=== PATIENT | female | born 1945 | race American Indian/Alaskan Native ===

== ENCOUNTER 2017-03-30 10:22 | Inpatient (IN) | payer MEDICARE, OTHER ==
[2017-03-30 11:04] LABS: Basophils % (Auto) 0.8 % (0.0-1.8); Eosinophils % (Auto) 1.7 % (0.0-4.3); Hematocrit 39.3 % (30.3-42.9); Hemoglobin 12.8 gm/dl (10.1-14.3); Mean Corpuscular HGB Conc 33 % (30-34); Mean Corpuscular Hemoglobin 27 pg (28-32); Mean Corpuscular Volume 84 fl (79-97); Platelet Count 241 K/mm3 (140-440); White Blood Count 4.3 K/mm3 (4.5-11.0)
[2017-03-30 11:23] LABS: Anion Gap 17 mmol/L; BUN/Creatinine Ratio 31; Blood Urea Nitrogen 25 mg/dL (7-17); Calcium 9.1 mg/dL (8.4-10.2); Carbon Dioxide 28 mmol/L (22-30); Chloride 101.2 mmol/L (98-107); Glucose 80 mg/dL (65-100); Potassium 3.6 mmol/L (3.6-5.0); Sodium 143 mmol/L (137-145)
--- NOTE | 2017-03-30 12:35 | Emergency Department Report ---
ED Chest Pain HPI - General Chief Complaint: Chest Pain Stated Complaint: CHEST PAIN Time Seen by Provider: 03/30/17 12:33 Source: patient, EMS Mode of arrival: Stretcher Limitations: No Limitations - History of Present Illness Initial Comments: This is a patient states she was woken up at 3 AM by a sharp chest pain of brief duration (seconds). She states that her jaw was uncomfortable for several minutes as well as her left shoulder. She states that she went to [facility] last week for evaluation of chest pain but was not admitted. She was referred to a tripe finisher who stated that she should have outpatient stress testing. The patient has never been admitted for a cardiac workup. She has seen Dr. Alonso in his office. She states that she was placed on a beta jeanine for which she seems to be describing as a tachycardia. I do not believe that she was found to be in SVT though. Dr. Elaine told her to decrease her beta jeanine dose and she stated that she was dizzy this weekend. Patient has noted that her heart rate is now slow. She states that she has had "variability" of her heart rate and blood pressure. She states that she had episodes of dizziness associated with a rapid heart rate. Today she states that she had another episode of dyspnea which was associated with rapid breathing. Complaint: chest pain -: Gradual Onset: during rest Pain Location: substernal Pain Radiation: other (aches had pain in her jaw and her left shoulder for a few minutes and) Severity scale (0 -10): 6 Quality: sharp Consistency: now resolved Improves With: nothing Worsens With: nothing re: dyspnea Treatments Prior to Arrival: other (see HPI prior ER visit beta jeanine outpatient visit to tripe finisher) Aspirin use within the Past 7 Days: (0) No - Related Data On Oral Contraceptives: No Home Medications Medication Instructions Recorded Confirmed Last Taken Losartan/Hydrochlorothiazide 1 each PO QDAY 03/30/17 03/30/17 Unknown [Losartan-Hctz 100-25 mg Tab] Metoprolol Tartrate 25 mg PO BID 03/30/17 03/30/17 Unknown Prednisone 10 mg PO QDAY 03/30/17 03/30/17 Unknown Allergies Allergy/AdvReac Type Severity Reaction Status Date / Time celecoxib [From Celebrex] Allergy Unknown Verified 03/30/17 10:41 hydrocodone Allergy Unknown Verified 03/30/17 10:41 tramadol Allergy Unknown Verified 03/30/17 10:41 Heart Score - HEART Score History: Slightly suspicious EKG: Non-specific Age: > 65 Risk factors: 1-2 risk factors Troponin: < normal limit HEART Score: 4 ED Review of Systems ROS: Stated complaint: CHEST PAIN Other details as noted in HPI Constitutional: denies: chills, fever Eyes: denies: eye pain, eye discharge, vision change ENT: denies: ear pain, throat pain Respiratory: denies: cough, shortness of breath, wheezing Cardiovascular: as per HPI, chest pain, other. denies: palpitations Endocrine: no symptoms reported Gastrointestinal: denies: abdominal pain, nausea, diarrhea Genitourinary: denies: urgency, dysuria, discharge Musculoskeletal: denies: back pain, joint swelling, arthralgia Skin: denies: rash, lesions Neurological: denies: headache, weakness, paresthesias Psychiatric: denies: anxiety, depression Hematological/Lymphatic: denies: easy bleeding, easy bruising ED Past Medical Hx - Past Medical History Hx Hypertension: Yes - Social History Substance Use Type: None - Medications Home Medications: Home Medications Medication Instructions Recorded Confirmed Last Taken Type Losartan/Hydrochlorothiazide 1 each PO QDAY 03/30/17 03/30/17 Unknown History [Losartan-Hctz 100-25 mg Tab] Metoprolol Tartrate 25 mg PO BID 03/30/17 03/30/17 Unknown History Prednisone 10 mg PO QDAY 03/30/17 03/30/17 Unknown History ED Physical Exam - General Limitations: No Limitations General appearance: alert, in no apparent distress - Head Head exam: Present: atraumatic, normocephalic - Eye Eye exam: Present: normal appearance. Absent: scleral icterus - ENT ENT exam: Present: mucous membranes moist - Neck Neck exam: Present: normal inspection - Respiratory Respiratory exam: Present: normal lung sounds bilaterally. Absent: respiratory distress - Cardiovascular Cardiovascular Exam: Present: normal rhythm, bradycardia. Absent: systolic murmur, diastolic murmur, rubs, gallop - GI/Abdominal GI/Abdominal exam: Present: soft, normal bowel sounds. Absent: distended, tenderness, guarding, rebound, rigid - Extremities Exam Extremities exam: Present: normal inspection - Back Exam Back exam: Present: normal inspection - Neurological Exam Neurological exam: Present: alert, oriented X3, CN II-XII intact. Absent: motor sensory deficit - Psychiatric Psychiatric exam: Present: normal affect, normal mood - Skin Skin exam: Present: warm, dry, intact, normal color. Absent: rash ED Course Vital Signs 03/30/17 03/30/17 03/30/17 11:43 11:45 11:54 Pulse Rate 44 L 44 L Respiratory 12 15 16 Rate Blood Pressure 148/61 Blood Pressure [Left] O2 Sat by Pulse 100 100 Oximetry 03/30/17 03/30/17 03/30/17 12:00 12:16 12:30 Pulse Rate 45 L 46 L 53 L Respiratory 18 16 19 Rate Blood Pressure 148/61 148/61 148/61 Blood Pressure 148/61 [Left] O2 Sat by Pulse 100 100 100 Oximetry - Reevaluation(s) Reevaluation #1: 03/30/17 13:52 Patient remained completely stable. He was a bit bradycardic but her repolarization segments look good. She was clinically asymptomatic. I spoke to the hospitalist Dr. Vo as well as Nasima the nurse practitioner for [facility]. GREG score - Greg Score Age > 65: (1) Yes Aspirin use within the Past 7 Days: (0) No 3 or more CAD Risk Factors: (0) No 2 or more Angina events in past 24 hrs: (0) No Known CAD with more than 50% Stenosis: (0) No Elevated Cardiac Markers: (0) No ST Deviation Greater than 0.5mm: (0) No GREG Score: 1 ED Medical Decision Making - Lab Data Result diagrams: 03/30/17 10:46 03/30/17 10:46 Laboratory Results - last 24 hr 03/30/17 03/30/17 10:46 10:46 WBC 4.3 L RBC 4.70 Hgb 12.8 Hct 39.3 MCV 84 MCH 27 L MCHC 33 RDW 15.0 Plt Count 241 Lymph % (Auto) 32.1 [place] % (Auto) 8.7 H Eos % (Auto) 1.7 Baso % (Auto) 0.8 Lymph # 1.4 [place] # 0.4 Eos # 0.1 Baso # 0.0 Seg Neutrophils % 56.7 Seg Neutrophils # 2.4 Sodium 143 Potassium 3.6 Chloride 101.2 Carbon Dioxide 28 Anion Gap 17 BUN 25 H Creatinine 0.8 Estimated GFR > 60 BUN/Creatinine Ratio 31 Glucose 80 Calcium 9.1 Troponin T < 0.010 - EKG Data -: EKG Interpreted by Me EKG shows normal: sinus rhythm, axis, intervals, QRS complexes, ST-T waves Rate: bradycardia - EKG Data Interpretation: no acute changes - Radiology Data Chest x-ray shows no acute process Critical care attestation.: If time is entered above; I have spent that time in minutes in the direct care of this critically ill patient, excluding procedure time. ED Disposition Clinical Impression: Bradycardia Chest pain Qualifiers: Chest pain type: unspecified Qualified Code(s): R07.9 - Chest pain, unspecified Disposition: DC-09 OP ADMIT IP TO THIS HOSP Is pt being admited?: Yes Does the pt Need Aspirin: Yes Condition: Stable Instructions: Chest Pain (ED) Referrals: EMBER FINNEY MD [Primary Care Provider] - 3-5 Days Time of Disposition: 13:54
[2017-03-30] MEDS ORDERED: BABY ASPIRIN PO ONE (13:00)
--- NOTE | 2017-03-30 13:20 | XRay Report ---
Single view chest: History: Hypertension. Findings: Borderline cardiomegaly. Trachea is midline. No consolidation, pneumothorax or pleural effusion. Impression: No cute cardiopulmonary findings.
--- NOTE | 2017-03-30 13:34 | Consultation ---
History of Present Illness Consult date: 03/30/17 Requesting physician: MARCOS WADE Consult reason: chest pain History of present illness: The pt is a 71 YO female with a past medical history significant for HTN, chronic back pain, lumbar stenosis, lumbar herniated disc, lumbar radiculopathy. She was seen in our office yesterday by Dr. Sun. She presented with c/o chest pain, palpitations and near syncope. She was seen recently at [facility] for history of palpitations and near syncope. She was observed in the ER and sent home. She has severe degenerative joint disease affecting the lumbar disk area and also knee regions. As per the patient she was placed on Cymbalta and subsequently on Celebrex for which she has had side effects, palpitations, feeling of passing out as presyncope. She also gives hx of chest heaviness on and off not radiating and not associated with any sweating. The chest heaviness is nonexertional, not typical of ischemia. She also gives hx of "heart flutter" and palpitations which leads to near syncopal episodes. As per her during those episodes her BP and heart rate both go up and subsequently symptoms subside. She was also diagnosed by reservations clerk as having polymyalgia rheumatica. Recently she was placed on beta jeanine (Metoprolol 25 mg PO bid).She admits that she takes 25 mg once a day as she felt the heart rate was too slow when she took it twice a day. She never loss consciousness during those episodes. She as advised yesterday per Dr. Sun to start taking Metoprolol 12.5 mg PO BID. Also changed the dose of Losartan HCTZ to 100/12.5 (she was taking 100/25) once a day. She was ordered TSH, 48 hr Holter monitor, echo, bilateral carotid doppler studies and exercise stress test for further cardiac evaluation as OP but awoke at 3AM today with more severe chest pain than usual and decided to seek medical attention. Past History Past Medical History: hypertension Past Surgical History: hysterectomy, Other (back surgery) Social history: denies: smoking, alcohol abuse, prescription drug abuse Medications and Allergies Allergies Allergy/AdvReac Type Severity Reaction Status Date / Time celecoxib [From Celebrex] Allergy Unknown Verified 03/30/17 10:41 hydrocodone Allergy Unknown Verified 03/30/17 10:41 tramadol Allergy Unknown Verified 03/30/17 10:41 Home Medications Medication Instructions Recorded Confirmed Last Taken Type Losartan/Hydrochlorothiazide 1 each PO QDAY 03/30/17 03/30/17 Unknown History [Losartan-Hctz 100-25 mg Tab] Metoprolol Tartrate 25 mg PO BID 03/30/17 03/30/17 Unknown History Prednisone 10 mg PO QDAY 03/30/17 03/30/17 Unknown History Review of Systems Constitutional: no weight loss, no weight gain, no fever, no chills, no sweats Ears, nose, mouth and throat: no ear pain, no nose pain, no sinus pressure, no sinus pain Cardiovascular: chest pain, palpitations, lightheadedness, high blood pressure, no orthopnea, no edema, no syncope, no shortness of breath, no dyspnea on exertion Respiratory: no cough, no shortness of breath, no dyspnea on exertion, no congestion, no wheezing, no pain on inspiration Gastrointestinal: no abdominal pain, no nausea, no vomiting, no diarrhea, no constipation, no change in bowel habits Genitourinary Female: no pelvic pain, no flank pain, no dysuria, no urinary frequency, no urgency Musculoskeletal: low back pain (chronic ), no neck stiffness, no neck pain, no shooting arm pain, no arm numbness/tingling Integumentary: no rash, no pruritis, no redness, no sores, no wounds Neurological: no head injury, no paralysis, no weakness, no parathesias, no numbness, no tingling, no seizures, no syncope Psychiatric: no sleep disturbances Endocrine: no cold intolerance, no heat intolerance Hematologic/Lymphatic: no easy bruising, no easy bleeding, no lymphadenopathy Allergic/Immunologic: no urticaria, no wheezing, no persistent infections Physical Examination Vital Signs Pulse Resp 44 L 12 03/30/17 11:43 03/30/17 11:43 General appearance: no acute distress HEENT: Positive: PERRL, Normocephaly, Mucus Membranes Moist Neck: Positive: neck supple, trachea midline Cardiac: Positive: Reg Rate and Rhythm, S1/S2, Systolic Murmur Lungs: Positive: clear to auscultation Neuro: Positive: Grossly Intact, Cranial Nerve 2-12 Intact Abdomen: Positive: Soft. Negative: Tender Skin: Positive: Clear. Negative: Rash Extremities: Present: normal, upper extr. pulses, lower extr. pulses. Absent: edema Results 03/30/17 10:46 03/30/17 10:46 CBC 03/30/17 Range/Units 10:46 WBC 4.3 L (4.5-11.0) K/mm3 RBC 4.70 (3.65-5.03) M/mm3 Hgb 12.8 (10.1-14.3) gm/dl Hct 39.3 (30.3-42.9) % Plt Count 241 (140-440) K/mm3 Lymph # 1.4 (1.2-5.4) K/mm3 [place] # 0.4 (0.0-0.8) K/mm3 Eos # 0.1 (0.0-0.4) K/mm3 Baso # 0.0 (0.0-0.1) K/mm3 Comprehensive Metabolic Panel 03/30/17 Range/Units 10:46 Sodium 143 (137-145) mmol/L Potassium 3.6 (3.6-5.0) mmol/L Chloride 101.2 (98-107) mmol/L Carbon Dioxide 28 (22-30) mmol/L BUN 25 H (7-17) mg/dL Creatinine 0.8 (0.7-1.2) mg/dL Glucose 80 (65-100) mg/dL Calcium 9.1 (8.4-10.2) mg/dL - Imaging and Cardiology Echo: pending EKG: report reviewed, image reviewed EKG interpretations - Telemetry EKG Rhythm: Sinus Bradycardia - EKG Sinus rhythms and dysrhythmias: sinus bradycardia Assessment and Plan Assessment: Chest pain, atypical - AMI ruled out Near syncope Palpitations Sinus bradycardia HTN Chronic back pain H/o lumbar herniated disc, lumbar radiculopathy, lumbar stenosis H/o polymyalgia rheumatica Plan: Obtain echo. Obtain thyroid profile. Obtain bilateral carotid doppler studies. Hold AV james blocking agents. Resume home losartan & HCTZ. Orthostatics obtained in our office yesterday were unremarkable. Plan for lexiscan MPI stress test in AM. NPO after MN. Assessment and plan reviewed with pt at bedside. The patient has been seen in conjunction with Dr. Sun who agrees with the assessment and plan of care.
[2017-03-30 13:42] LABS: INR 0.92 (0.87-1.13)
[2017-03-30 13:43] LABS: Partial Thromboplastin Time 29.7 Sec. (24.2-36.6)
[2017-03-30 14:12] LABS: Alanine Aminotransferase 13 units/L (7-56); Albumin 4.1 g/dL (3.9-5); Albumin/Globulin Ratio 1.5 %; Alkaline Phosphatase 95 units/L (35-129); Total Protein 6.9 g/dL (6.3-8.2)
[2017-03-30 14:25] LABS: Bilirubin,Direct < 0.2 mg/dL (0-0.2)
[2017-03-30 14:38] LABS: Bacteria,Urine 1+ /HPF (Negative); Bilirubin,Urine NEG (Negative); Blood,Urine SM (Negative); Ketones,Urine NEG (Negative); Leukocyte Esterase,Urine SM (Negative); Nitrite,Urine NEG (Negative); Protein,Urine <15 mg/dL mg/dL (Negative); Urobilinogen,Urine < 2.0 mg/dL (<2.0)
[2017-03-30] MEDS ORDERED: HCTZ PO SCH (18:00)
--- NOTE | 2017-03-30 23:30 | History and Physical Report ---
History of Present Illness Date of examination: 03/30/17 Date of admission: 03/30/17 13:01 Chief complaint: chief complaint: Chest pain off and on for 1 week History of present illness: History of present illness: 71-year-old female with history of hypertension lumbar stenosis lumbar coagulopathy and lumbar herniated disc presents with chest pain palpitations and near-syncope of one-week duration. Patient was recently admitted to [facility] for palpitations and near syncope. Patient was observed in the ER Patient has chest heaviness which is nonexertional. Also history of palpitations leads to near syncopal episodes. She also says that her blood pressure is very fluctuant. Patient was recently diagnosed with PMR. No actual syncope. No diaphoresis . No recent travel. Past History Past Medical History: hypertension Past Surgical History: hysterectomy, Other (back surgery) Social history: denies: smoking, alcohol abuse, prescription drug abuse Family history: hypertension Medications and Allergies Allergies Allergy/AdvReac Type Severity Reaction Status Date / Time celecoxib [From Celebrex] Allergy Unknown Verified 03/30/17 10:41 hydrocodone Allergy Unknown Verified 03/30/17 10:41 tramadol Allergy Unknown Verified 03/30/17 10:41 Home Medications Medication Instructions Recorded Confirmed Last Taken Type Losartan/Hydrochlorothiazide 1 each PO QDAY 03/30/17 03/30/17 Unknown History [Losartan-Hctz 100-25 mg Tab] Metoprolol Tartrate 25 mg PO BID 03/30/17 03/30/17 Unknown History Prednisone 10 mg PO QDAY 03/30/17 03/30/17 Unknown History Active Meds: Active Medications Aspirin (Baby Aspirin) 81 mg PO QDAY [facility] Hydrochlorothiazide (Hctz) 12.5 mg PO QDAY [facility] Last Admin: 03/30/17 18:30 Dose: 12.5 mg Losartan Potassium (Cozaar) 100 mg PO QDAY [facility] Review of Systems Constitutional: no weight loss, no weight gain, no fever, no chills, no sweats, no night sweats (aRG) Ears, nose, mouth and throat: no sore throat, no swelling in mouth, no swelling in throat Breasts: deferred Cardiovascular: chest pain (intraoral defibrillator when was a question as D she will which patient returned which patient to afford inpatient status and weakness. Ongoing minor, GRAND MAL. SO JUST TO KEEP BOTH(.), lightheadedness, dyspnea on exertion Respiratory: dyspnea on exertion, no cough, no cough with sputum, no excessive sputum, no hemoptysis, no shortness of breath Gastrointestinal: no abdominal pain, no nausea, no vomiting, no diarrhea, no constipation, no change in bowel habits, no hematemesis, no coffee ground emesis Genitourinary Female: no dysuria, no urinary frequency, no urgency Musculoskeletal: low back pain, muscle cramps Integumentary: no rash, no pruritis, no redness, no sores Neurological: no head injury, no transient paralysis, no paralysis Psychiatric: no anxiety, no memory loss, no change in sleep habits, no sleep disturbances, no insomnia, no hypersomnia Endocrine: no cold intolerance, no heat intolerance, no polyphagia, no excessive thirst Hematologic/Lymphatic: no easy bruising, no easy bleeding Allergic/Immunologic: no urticaria, no allergic rhinitis, no wheezing Exam - Physical Exam Narrative exam: lying in bed comfortably - Constitutional Vitals: Temp Pulse Resp BP Pulse Ox 98.0 F 51 L 20 133/63 95 03/30/17 20:21 03/30/17 20:21 03/30/17 20:21 03/30/17 20:21 03/30/17 20:21 General appearance: Present: no acute distress, well-nourished - EENT Eyes: Present: PERRL ENT: hearing intact, clear oral mucosa - Neck Neck: Present: supple, normal ROM - Respiratory Respiratory effort: normal Respiratory: bilateral: CTA - Cardiovascular Heart rate: 50 Rhythm: regular Heart Sounds: Present: S1 & S2. Absent: rub, click - Extremities Extremities: no ischemia, pulses intact, pulses symmetrical, No edema Peripheral Pulses: within normal limits - Abdominal General gastrointestinal: Present: soft, non-tender, non-distended, normal bowel sounds Female genitourinary: Present: normal - Rectal Rectal Exam: deferred - Integumentary Integumentary: Present: clear, warm, dry - Musculoskeletal Musculoskeletal: gait normal, strength equal bilaterally - Psychiatric Psychiatric: appropriate mood/affect, intact judgment & insight - Neurologic Neurologic: CNII-XII intact, moves all extremities - Allied Health Allied health notes reviewed: nursing, case management Results - Labs CBC & Chem 7: 03/30/17 10:46 03/30/17 10:46 Labs: Laboratory Last Values WBC 4.3 K/mm3 (4.5-11.0) L 03/30/17 10:46 RBC 4.70 M/mm3 (3.65-5.03) 03/30/17 10:46 Hgb 12.8 gm/dl (10.1-14.3) 03/30/17 10:46 Hct 39.3 % (30.3-42.9) 03/30/17 10:46 MCV 84 fl (79-97) 03/30/17 10:46 MCH 27 pg (28-32) L 03/30/17 10:46 MCHC 33 % (30-34) 03/30/17 10:46 RDW 15.0 % (13.2-15.2) 03/30/17 10:46 Plt Count 241 K/mm3 (140-440) 03/30/17 10:46 Lymph % (Auto) 32.1 % (13.4-35.0) 03/30/17 10:46 [place] % (Auto) 8.7 % (0.0-7.3) H 03/30/17 10:46 Eos % (Auto) 1.7 % (0.0-4.3) 03/30/17 10:46 Baso % (Auto) 0.8 % (0.0-1.8) 03/30/17 10:46 Lymph # 1.4 K/mm3 (1.2-5.4) 03/30/17 10:46 [place] # 0.4 K/mm3 (0.0-0.8) 03/30/17 10:46 Eos # 0.1 K/mm3 (0.0-0.4) 03/30/17 10:46 Baso # 0.0 K/mm3 (0.0-0.1) 03/30/17 10:46 Seg Neutrophils % 56.7 % (40.0-70.0) 03/30/17 10:46 Seg Neutrophils # 2.4 K/mm3 (1.8-7.7) 03/30/17 10:46 PT 12.8 Sec. (12.2-14.9) 03/30/17 13:16 INR 0.92 (0.87-1.13) 03/30/17 13:16 APTT 29.7 Sec. (24.2-36.6) 03/30/17 13:16 D-Dimer < 135.00 ng/mlDDU (0-234) 03/30/17 13:16 Sodium 143 mmol/L (137-145) 03/30/17 10:46 Potassium 3.6 mmol/L (3.6-5.0) 03/30/17 10:46 Chloride 101.2 mmol/L (98-107) 03/30/17 10:46 Carbon Dioxide 28 mmol/L (22-30) 03/30/17 10:46 Anion Gap 17 mmol/L 03/30/17 10:46 BUN 25 mg/dL (7-17) H 03/30/17 10:46 Creatinine 0.8 mg/dL (0.7-1.2) 03/30/17 10:46 Estimated GFR > 60 ml/min 03/30/17 10:46 BUN/Creatinine Ratio 31 % 03/30/17 10:46 Glucose 80 mg/dL (65-100) 03/30/17 10:46 Calcium 9.1 mg/dL (8.4-10.2) 03/30/17 10:46 Total Bilirubin 0.20 mg/dL (0.1-1.2) 03/30/17 13:16 Direct Bilirubin < 0.2 mg/dL (0-0.2) 03/30/17 13:16 AST 15 units/L (5-40) 03/30/17 13:16 ALT 13 units/L (7-56) 03/30/17 13:16 Alkaline Phosphatase 95 units/L (35-129) 03/30/17 13:16 Troponin T < 0.010 ng/mL (0.00-0.029) 03/30/17 20:55 NT-Pro-B Natriuret Pep 62.43 pg/mL (0-900) 03/30/17 13:16 Total Protein 6.9 g/dL (6.3-8.2) 03/30/17 13:16 Albumin 4.1 g/dL (3.9-5) 03/30/17 13:16 Albumin/Globulin Ratio 1.5 % 03/30/17 13:16 Free T4 1.18 ng/dL (0.76-1.46) 03/30/17 20:55 Urine Color Yellow (Yellow) 03/30/17 12:53 Urine Turbidity Clear (Clear) 03/30/17 12:53 Urine pH 5.0 (5.0-7.0) 03/30/17 12:53 Ur Specific [place] 1.013 (1.003-1.030) 03/30/17 12:53 Urine Protein <15 mg/dl mg/dL (Negative) 03/30/17 12:53 Urine Glucose (UA) Neg mg/dL (Negative) 03/30/17 12:53 Urine Ketones Neg mg/dL (Negative) 03/30/17 12:53 Urine Blood Sm (Negative) 03/30/17 12:53 Urine Nitrite Neg (Negative) 03/30/17 12:53 Urine Bilirubin Neg (Negative) 03/30/17 12:53 Urine Urobilinogen < 2.0 mg/dL (<2.0) 03/30/17 12:53 Ur Leukocyte Esterase Sm (Negative) 03/30/17 12:53 Urine WBC (Auto) 3.0 /HPF (0.0-6.0) 03/30/17 12:53 Urine RBC (Auto) 2.0 /HPF (0.0-6.0) 03/30/17 12:53 U Epithel Cells (Auto) 1.0 /HPF (0-13.0) 03/30/17 12:53 Urine Bacteria (Auto) 1+ /HPF (Negative) 03/30/17 12:53 Short CBC 03/30/17 Range/Units 10:46 WBC 4.3 L (4.5-11.0) K/mm3 Hgb 12.8 (10.1-14.3) gm/dl Hct 39.3 (30.3-42.9) % Plt Count 241 (140-440) K/mm3 BMP 03/30/17 10:46 Sodium 143 Potassium 3.6 Chloride 101.2 Carbon Dioxide 28 BUN 25 H Creatinine 0.8 Glucose 80 Calcium 9.1 Cardiac Enzymes 03/30/17 03/30/17 03/30/17 Range/Units 10:46 13:16 20:55 Troponin T < 0.010 < 0.010 < 0.010 (0.00-0.029) ng/mL Liver Function 03/30/17 Range/Units 13:16 Total Bilirubin 0.20 (0.1-1.2) mg/dL Direct Bilirubin < 0.2 (0-0.2) mg/dL AST 15 (5-40) units/L ALT 13 (7-56) units/L Alkaline Phosphatase 95 (35-129) units/L Albumin 4.1 (3.9-5) g/dL Urine 03/30/17 Range/Units 12:53 Urine Color Yellow (Yellow) Urine pH 5.0 (5.0-7.0) Ur Specific [place] 1.013 (1.003-1.030) Urine Protein <15 mg/dl (Negative) mg/dL Urine Glucose (UA) Neg (Negative) mg/dL - Imaging and Cardiology EKG: report reviewed (sinus bradycardia) Chest x-ray: report reviewed (no acute findings) Assessment and Plan Advance Directives: Yes VTE prophylaxis?: Chemical Plan of care discussed with patient/family: Yes - Patient Problems (1) Chest pain, atypical Current Visit: Yes Status: Acute Plan to address problem: chest pain workup differential diagnosis of costochondritis and reflux esophagitis to be considered (2) Sinus bradycardia Current Visit: Yes Status: Acute Plan to address problem: beta blockers stopped (3) Hypertension Current Visit: Yes Status: Acute (4) Near syncope Current Visit: Yes Status: Acute Plan to address problem: carotid duplex scan echocardiogram and Lexiscan. Cardiology consult also requested. (5) Lumbar radiculopathy Current Visit: Yes Status: Chronic Plan to address problem: pain control with analgesics (6) DVT prophylaxis Current Visit: Yes Status: Acute Plan to address problem: Lovenox 40 mg subcutaneous daily
[2017-03-30] MEDS ORDERED: NACL 0.45% 1000 ML 1,000 ML IV SCH (23:45)
[2017-03-30] MEDS ORDERED: AMBIEN PO PRN (23:51)
[2017-03-30] MEDS ORDERED: TYLENOL PO PRN (23:51)
[2017-03-30] MEDS ORDERED: DULCOLAX PR PRN (23:51)
[2017-03-30] MEDS ORDERED: PERCOCET 5/325 PO PRN (23:51)
[2017-03-30] MEDS ORDERED: ZOFRAN IV PRN (23:51)
[2017-03-30] MEDS ORDERED: MILK OF MAGNESIA PO PRN (23:51)
[2017-03-30] MEDS ORDERED: MORPHINE IV PRN (23:51)
[2017-03-31 03:00] LABS: Anion Gap 15 mmol/L; BUN/Creatinine Ratio 29; Blood Urea Nitrogen 23 mg/dL (7-17); Calcium 8.6 mg/dL (8.4-10.2); Carbon Dioxide 27 mmol/L (22-30); Chloride 103.3 mmol/L (98-107); Glucose 81 mg/dL (65-100); Sodium 141 mmol/L (137-145)
[2017-03-31] MEDS ORDERED: LEXISCAN IV ONE ×2 (09:35→10:00)
[2017-03-31] MEDS ORDERED: HCTZ PO SCH (10:00)
[2017-03-31] MEDS ORDERED: BABY ASPIRIN PO SCH (10:00)
[2017-03-31] MEDS ORDERED: COZAAR PO SCH (10:00)
--- NOTE | 2017-03-31 11:25 | Discharge Summary ---
Providers - Providers Date of Admission: 03/30/17 13:01 Attending physician: DEVYN JUDGE MD 03/30/17 13:04 Consult to Physician [CONS] Urgent Consulting Provider: SADI WORLEY Reason For Exam: chest pain Place consult to:: CARDIO Notified:: Y If yes, spoke with:: MADY AYON Time called:: 13:25 Primary care physician: EMBER FINNEY Hospitalization Reason for admission: chest pain Condition: Stable Hospital course: Patient is a 71 YO female with a past medical history significant for HTN, chronic back pain, lumbar stenosis, lumbar herniated disc, lumbar radiculopathy. She was seen in our office by Dr. Sun with complaint of chest pain palpitations and near syncope. Per cardiology documentation "She was seen recently at [facility] for history of palpitations and near syncope. She was observed in the ER and sent home. She has severe degenerative joint disease affecting the lumbar disk area and also knee regions. As per the patient she was placed on Cymbalta and subsequently on Celebrex for which she has had side effects, palpitations, feeling of passing out as presyncope. She also gives hx of chest heaviness on and off not radiating and not associated with any sweating. The chest heaviness is nonexertional, not typical of ischemia. She also gives hx of "heart flutter" and palpitations which leads to near syncopal episodes. As per her during those episodes her BP and heart rate both go up and subsequently symptoms subside. 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 Recently she was placed on beta jeanine (Metoprolol 25 mg PO bid). She admits that she takes 25 mg once a day as she felt the heart rate was too slow when she took it twice a day. She never loss consciousness during those episodes. She as advised yesterday per Dr. Sun to start taking Metoprolol 12.5 mg PO BID. Also changed the dose of Losartan HCTZ to 100/12.5 (she was taking 100/25) once a day. She was ordered TSH, 48 hr Holter monitor, echo, bilateral carotid doppler studies and exercise stress test for further cardiac evaluation as OP but awoke at 3AM today with more severe chest pain than usual and decided to seek medical attention." On admission BB was held and patient started on ASA and proceeded to have a stress test which as normal with no evidence of ischemia. she was noted to ahve carotid studies with less than 50% stenosis bilaterally. Her bb was changed to loporessor 12.5mg po bid with recommendation to follow with cardiology outpatient. Sinus bradycardia Chest pain, atypical - currently resolved; AMI ruled out. Likely secondary to radiculopathy Near syncope Palpitations Sinus bradycardia HTN Chronic back pain H/o lumbar herniated disc, lumbar radiculopathy, lumbar stenosis H/o polymyalgia rheumatica HLP Disposition: DC-01 TO HOME OR SELFCARE Time spent for discharge: 30 Core Measure Documentation - Palliative Care Palliative Care/ Comfort Measures: Not Applicable - Core Measures Any of the following diagnoses?: none - VTE Discharge Requirements Deep Vein Thrombosis/Pulmonary Embolism Present on Admission: No Exam - Constitutional Vitals: Temp Pulse Resp BP Pulse Ox 98.3 F 57 L 18 134/60 99 03/31/17 09:48 03/31/17 09:48 03/31/17 09:48 03/31/17 09:48 03/31/17 09:48 General appearance: Present: no acute distress, well-nourished - EENT Eyes: Present: PERRL, EOM intact ENT: hearing intact, clear oral mucosa, dentition normal - Neck Neck: Present: supple, normal ROM - Respiratory Respiratory effort: normal Respiratory: bilateral: CTA - Cardiovascular Rhythm: regular Heart Sounds: Present: S1 & S2 - Extremities Extremities: no ischemia, pulses intact, pulses symmetrical, No edema, normal temperature, normal color, Full ROM Peripheral Pulses: within normal limits - Abdominal General gastrointestinal: Present: soft, non-tender, non-distended, normal bowel sounds Female genitourinary: Present: deferred - Rectal Rectal Exam: deferred - Integumentary Integumentary: Present: clear, warm, dry - Musculoskeletal Musculoskeletal: strength equal bilaterally - Psychiatric Psychiatric: appropriate mood/affect, intact judgment & insight - Neurologic Neurologic: CNII-XII intact, moves all extremities - Allied Health Allied health notes reviewed: nursing, social work Plan Activity: advance as tolerated Diet: low fat Special Instructions: record daily BP diary Follow up with: EMBER FINNEY MD [Primary Care Provider] - 3-5 Days FARZANA-SADI SUN MD [Staff Physician] - 7 Days Prescriptions: Aspirin [Aspirin BABY CHEW TAB] 81 mg PO QDAY #30 tab.chew Metoprolol [Lopressor] 12.5 mg PO BID 30 Days tablet
[2017-03-31 13:35] VITALS: BP 142/69
--- NOTE | 2017-03-31 13:37 | Progress Note ---
Assessment and Plan Assessment: Chest pain, atypical - currently resolved; AMI ruled out Near syncope Palpitations Sinus bradycardia HTN Chronic back pain H/o lumbar herniated disc, lumbar radiculopathy, lumbar stenosis H/o polymyalgia rheumatica HLP Plan: Pt s/p lexiscan MPI stress test this AM which was negative for ischemia, EF 66% . Echo reviewed with [facility]. Carotid studies showed <50% stenosis bilaterally. Orthostatics obtained in our office yesterday were unremarkable. Currently stable cardiac status. Pt may discharge home from cardiology standpoint. On discharge, may resume lopressor 12.5mg PO BID. Follow up in our [place] office with Dr. Sun on 04/13/2017 @ 2:00PM. Assessment and plan reviewed with pt at bedside. The patient has been seen in conjunction with Dr. Sun who agrees with the assessment and plan of care. Subjective Date of service: 03/31/17 Principal diagnosis: chest pain, near syncope, palpitations Interval history: pt for stress test today. no current complaints. remains SB on telemetry, BPs stable. Objective Last Vital Signs Temp 98.3 F 03/31/17 09:48 Pulse 74 03/31/17 10:25 Resp 18 03/31/17 09:48 BP 122/67 03/31/17 10:25 Pulse Ox 99 03/31/17 09:48 - Physical Examination HEENT: Positive: PERRL, Normocephaly, Mucus Membranes Moist Neck: Positive: neck supple, trachea midline Cardiac: Positive: Reg Rate and Rhythm, S1/S2 Lungs: Positive: clear to auscultation Neuro: Positive: Grossly Intact, Cranial Nerve 2-12 Intact Abdomen: Positive: Soft. Negative: Tender Skin: Positive: Clear. Negative: Rash Extremities: Present: normal, upper extr. pulses, lower extr. pulses. Absent: edema - Labs and Meds Cardiac Enzymes 03/30/17 03/31/17 03/31/17 Range/Units 13:16 01:11 05:12 AST 15 (5-40) units/L CK-MB (CK-2) 1.0 1.0 (0.0-4.0) ng/mL Coagulation 03/30/17 Range/Units 13:16 PT 12.8 (12.2-14.9) Sec. INR 0.92 (0.87-1.13) APTT 29.7 (24.2-36.6) Sec. Lipids 03/31/17 Range/Units 05:12 Triglycerides 135 (2-149) mg/dL Cholesterol 220 H (50-199) mg/dL HDL Cholesterol 82 H (40-59) mg/dL Cholesterol/HDL Ratio 2.68 % Comprehensive Metabolic Panel 03/30/17 03/31/17 Range/Units 13:16 02:24 Sodium 141 (137-145) mmol/L Potassium 4.0 (3.6-5.0) mmol/L Chloride 103.3 (98-107) mmol/L Carbon Dioxide 27 (22-30) mmol/L BUN 23 H (7-17) mg/dL Creatinine 0.8 (0.7-1.2) mg/dL Glucose 81 (65-100) mg/dL Calcium 8.6 (8.4-10.2) mg/dL Direct Bilirubin < 0.2 (0-0.2) mg/dL AST 15 (5-40) units/L ALT 13 (7-56) units/L Alkaline Phosphatase 95 (35-129) units/L Total Protein 6.9 (6.3-8.2) g/dL Albumin 4.1 (3.9-5) g/dL - Imaging and Cardiology EKG: report reviewed (sinus bradycardia) Echo: pending - EKG Sinus rhythms and dysrhythmias: sinus bradycardia
[2017-03-31] MEDS ORDERED: LOVENOX SUB-Q SCH (22:00)
--- NOTE | 2017-04-01 01:27 | Treadmill Report ---
This is a single isotope dual study myocardial perfusion scan report. AGE: 71. SEX: Female. REFERRING PHYSICIAN: Dr. Swanson. DESCRIPTION OF PROCEDURE: The patient received 10 mCi of technetium 99m Myoview intravenously under resting conditions. Resting myocardial perfusion scan was done. Subsequently, the patient underwent Lexiscan stress test as per the protocol. During Lexiscan stress, the patient received 28 mCi of technetium 99m Myoview intravenously. After 30-60 minutes, post stress images were done. Computerized reconstruction of the images was performed for analysis. The post-stress images revealed uniform distribution of the radiopharmaceutical in the left ventricular myocardium. Cinematic display of the gated study did not reveal any wall motion abnormality. The left ventricular ejection fraction was normal and was calculated to be 66%. The resting images were also normal. CONCLUSIONS: 1. Normal resting and stress images after the patient underwent Monica stress nuclear scan. 2. No wall motion abnormality. 3. Normal left ventricular ejection fraction of 66%. JOB# [id number] [facility]
--- NOTE | 2017-04-01 11:46 | Vascular Lab Report ---
CAROTID DUPLEX STUDY: RIGHT PSVEDV CCA PROX:[id number] CCA DIST:[id number] ICA PROX:6112 ICA MID:[id number] ICA DIST:07119 ECA: 1006 VERT: 70 7 LEFT PSVEDV CCA PROX:[id number] CCA DIST:[id number] ICA PROX:1129 ICA MID:8726 ICA DIST:[id number] ECA: 988 VERT: 60 10 REASON FOR EXAM: Syncope. COMMENTS ON THE RIGHT: Doppler frequency analysis is consistent with 16 to 49 percent diameter reduction of the internal carotid artery. Minimal plaque is seen. The common carotid artery is patent. The external carotid artery is patent. The vertebral artery has antegrade flow. COMMENTS ON THE LEFT: Doppler frequency analysis is consistent with 16 to 49 percent diameter reduction of the internal carotid artery. Minimal plaque is seen. The common carotid artery is patent. The external carotid artery is patent. The vertebral artery has antegrade flow. IMPRESSION: Less then 50% diameter reduction in the internal carotid arteries bilaterally.
== END 2017-03-31 13:05 | disposition home or self-care (01) | DRG 552 ==
LOC: ED 10:22 → 4A 13:01
PROVIDERS: ADMIT Internal Medicine; ATTEND Internal Medicine
DX: M54.16 Radiculopathy, lumbar region (principal); R00.1 Bradycardia, unspecified; I10 Essential (primary) hypertension; R55 Syncope and collapse; G89.29 Other chronic pain; M35.3 Polymyalgia rheumatica; E78.5 Hyperlipidemia, unspecified; Z88.5 Allergy status to narcotic agent; Z79.899 Other long term (current) drug therapy; Z82.49 Family history of ischemic heart disease and other diseases of the circulatory system; Z90.710 Acquired absence of both cervix and uterus
CPT/HCPCS: 36415; 71010; 78452; 80048; 80061; 80074; 81001; 82550; 82553; 83880; 84439; 84484; 85025; 85379; 85610; 85730; 93005; 93010; 93017; 93306; 93880; A9502; J2785